=== PATIENT | male | born 1975 | race Caucasian/White ===

== ENCOUNTER → 2021-02-27 01:12 | Outpatient (CLI) | payer OTHER, SELFPAY ==
[2021-02-28 02:27] LABS: SARS-CoV-2 RNA PCR Negative
== END ==
PROVIDERS: PCP Family Medicine; Visit Provider Family Medicine
DX: Z20.822 Contact with and (suspected) exposure to COVID-19 (principal); R05 Cough
CPT/HCPCS: C9803; U0003; U0005

== ENCOUNTER → 2021-05-04 11:07 | Outpatient (CLI) | payer OTHER, SELFPAY ==
--- NOTE | ~2021-05-04 | US_ITS ---
US scrotum doppler DATE: 05/04/2021 12:00 INDICATION: Lump in region of right epididymal head TECHNIQUE: Real-time and color flow imaging and Doppler analysis of the scrotal contents COMPARISON: None FINDINGS: The right testicle measures 3.6 x 1.9 x 3.2 cm, the left 3.8 x 2.1 x 2.5 cm. There is symme tric and homogeneous echotexture of the testicles and normal symmetric color flow signal. There is no evidence of testicular mass lesion or torsion. There is an approximately 5 x 7 mm epididymal head cyst on the left. There is an approximately 3.8 mm right epididymal head cyst. Small right and left hydroceles. No evidence of varicocele on Valsalva maneuver. IMPRESSION: Up to 7 mm left and 3.8 mm right epididymal head cyst No testicular mass lesion or torsion No evidence of varicocele Reviewed, dictated and finalized at [facility]. Reviewed, dictated and finalized at location B.
== END ==
PROVIDERS: PCP Family Medicine; Visit Provider Family Medicine
DX: N50.89 Other specified disorders of the male genital organs (principal)
CPT/HCPCS: 76870; 93976

== ENCOUNTER → 2022-02-16 14:41 | Outpatient (CLI) | payer OTHER, SELFPAY ==
--- NOTE | ~2022-02-16 | XR_ITS ---
XR abdomen/kub 1V 02/16/2022 14:55 Indication: Bilateral kidney stones Procedure: KUB Comparison: 11/30/2016 Findings: Bowel gas pattern is nonobstructive. Moderate colonic fecal loading. There are radiodensiti es lateral to the L4 vertebral body, suspicious for right ureteral stone. The kidneys are obscured by bowel content limiting evaluation for renal stones. Impression: 1: Possible right ureteral stone. Limited evaluation of the kidneys due to overlying bowel content. Reviewed, dictated and finalized at location A. Impression: 1: Possible right ureteral stone. Limited evaluation of the kidneys due to over lying bowel content.
--- NOTE | ~2022-02-16 | CT_ITS ---
EXAMINATION: CT abdomen pelvis wo con DATE: 02/16/2022 15:09 INDICATION: Bilateral kidney stones. Enlarged prostate gland. TECHNIQUE: Computed tomography (CT) of the abdomen and pelvis was performed without intravenous contr ast. The dose-length product was 252.81 mGy-cm. Automated exposure control and iterative reconstructi on technique were employed. COMPARISON: CT dated 05/22/2019. FINDINGS: Lung bases are unremarkable. Heart size normal. No significant pleural or pericardial effus ion. There is a 4.6 mm stone near the expected location of the right UVJ. No significant hydronephros is. This may represent UVJ stone or recently passed stone. The bladder is decompressed. There is a sm all 2 mm nonobstructing left renal stone. Subtle subcentimeter hypodensities of the liver, most likely benign. The spleen, pancreas, adrenal gl ands are unremarkable. Gallbladder is present. Nonobstructive bowel gas pattern. No significant vascu lar abnormality. No lymphadenopathy. IMPRESSION: 1. Stone measuring 4.6 mm present near the right UVJ which may represent a recently passed stone or U VJ stone. No significant hydronephrosis. 2: Punctate nonobstructing left nephrolithiasis. Reviewed, dictated and finalized at location A. IMPRESSION: 1. Stone measuring 4.6 mm present near the right UVJ which may represent a rece ntly passed stone or UVJ stone. No significant hydronephrosis. 2: Punctate nonobstructing left nephrolithiasis.
== END ==
PROVIDERS: PCP Family Medicine; Visit Provider Nurse Practitioner Adult Health
DX: N20.0 Calculus of kidney (principal)
CPT/HCPCS: 74018; 74176

== ENCOUNTER → 2022-03-11 15:10 | Outpatient (CLI) | payer OTHER, SELFPAY ==
--- NOTE | ~2022-03-11 | XR_ITS ---
XR abdomen/kub 1V 03/11/2022 15:35 INDICATION: Right ureteral stone TECHNIQUE: KUB COMPARISON: None FINDINGS: Bowel gas pattern is normal. There is no evidence of free air, mass, organomegaly, ascites or obstruction. No abnormal calculi are seen. The bones appear intact. IMPRESSION: 1: No acute abdominal abnormality identified. Reviewed, dictated and finalized at location B.
--- NOTE | ~2022-03-11 | CT_ITS ---
EXAMINATION: CT abdomen pelvis wo con DATE: 03/11/2022 15:30 INDICATION: Right ureteral stone. TECHNIQUE: Computed tomography (CT) of the abdomen and pelvis was performed without intravenous contr ast. Automated exposure control and iterative reconstruction technique were employed. The dose-length product was 248.62 mGy-cm. COMPARISON: CT abdomen and pelvis 02/16/2022 FINDINGS: The visualized portions of the lung bases demonstrate minimal atelectasis. No pleural effus ion. The heart size is normal. No pericardial effusion. There are cysts in the liver measuring up to 5 mm. The gallbladder is absent. The spleen, pancreas, adrenal glands, and right kidney are normal. T here is a 2 mm stone in left kidney. There is diverticulosis of the colon without evidence of diverti culitis. There are no dilated loops of bowel. There are changes of appendectomy. There are no patholo gically enlarged lymph nodes. There is no free intraperitoneal fluid. There is mild thoracolumbar spo ndylosis. IMPRESSION: 1. 2 mm nonobstructing left kidney stone. Reviewed, dictated and finalized at location A.
== END ==
PROVIDERS: PCP Family Medicine; Visit Provider Nurse Practitioner Adult Health
DX: N20.1 Calculus of ureter (principal); N20.0 Calculus of kidney
CPT/HCPCS: 74018; 74176

== ENCOUNTER 2022-04-09 19:24 | Emergency (ER) | payer OTHER, SELFPAY ==
[2022-04-09] VITALS (10 sets, daily range): BP systolic 121–151; BP diastolic 82–93; PULSE 71–91; RESP 14–20; TEMP 36.7; O2SAT 97–100
--- NOTE | 2022-04-09 19:42 | ED.NAVMDI ---
HPI - Nausea/Vomiting/Diarrhea General Chief complaint: Nausea/Vomiting/Diarrhea Stated complaint: vomiting blood Time Seen by Provider: 04/09/22 19:40 History of Present Illness HPI Narrative: Patient is a 46-year-old male with a history of hypertension presenting with vomiting. Patient states that he went out to dinner with a friend and had several alcoholic beverages. He then went home and was getting ready to go to his daughter's football game when he became suddenly nauseated. He had multiple episodes of emesis. 2 of those episodes were streaked with blood. He called his who advised that he come in for evaluation. Patient states that he had 1 further episode of emesis but he currently feels well. States he is still mildly nauseated. He denies any abdominal pain. Denies similar episodes in the past. He denies headache, fevers or chills, chest pain, shortness of breath, cough, diarrhea, dysuria, leg swelling. Related Data Allergies Allergy/AdvReac Type Severity Reaction Status Date / Time No Known Allergies Allergy Unknown Verified 02/09/22 15:05 Review of Systems Review of Systems: All systems reviewed & are unremarkable except as noted in HPI and below PMFSH Past Medical History Medical History Chronic low back pain Dyslipidemia Essential (primary) hypertension Family history of prostate cancer in father History of kidney stones Surgical History Surgical History History of laparoscopic appendectomy 05/22/2019 History of umbilical hernia repair 04/2019 History of vasectomy 2016 Family History Family History Father Anxiety Cerebrovascular accident Heart disease Chest pain Depression Cancer Mother Alzheimer disease Social History Social History Smoking status: Never smoker Alcohol intake: current Alcohol use details: Occasional/Social Substance use: never Substance use type: does not use Additional living arrangements comments: and two children Additional occupation/education comments: [employer] Gender identity (if verbalized by the patient): Male Sexual Orientation (if Verbalized by the Patient): Straight or Heterosexual Agree to blood products: Yes Exam Narrative: GENERAL: Well-appearing and in no acute distress. Appears slightly intoxicated. HEAD: Normocephalic, atraumatic. EYES: PERRLA and EOMI. ENT: Nares clear, no rhinorrhea or epistaxis. Mucous membranes moist. NECK: Supple. CHEST: Clear to auscultation. No respiratory distress. HEART: Regular rate and rhythm. No murmur heard. Normal peripheral pulses. ABDOMEN: Soft, nontender, nondistended, normal active bowel sounds. EXTREMITIES: Normal range of motion. No edema. SKIN: Warm, dry, no rash. NEURO: No focal deficits. Alert and oriented x3. PSYCH: Normal mood and affect. Course Vital Signs Vital signs: Vital Signs Temperature 98.0 F 04/09/22 19:32 Pulse Rate 83 04/09/22 19:32 Respiratory Rate 18 04/09/22 19:32 Blood Pressure 151/93 H 04/09/22 19:32 Pulse Oximetry 100 04/09/22 19:32 Oxygen Delivery Room Air 04/09/22 19:32 Temperature 98.0 F 04/09/22 19:32 Pulse Rate 74 04/09/22 21:57 Respiratory Rate 18 04/09/22 21:57 Blood Pressure 132/89 04/09/22 21:57 Pulse Oximetry 97 04/09/22 21:57 Oxygen Delivery Room Air 04/09/22 19:32 MDM - Nausea/Vomiting/Diarrhea MDM Narrative Medical decision making narrative: Patient is a 46-year-old male presenting with vomiting and hematemesis. Vitals are within normal limits. Patient is nontoxic and in no acute distress. Exam is remarkable for the above. Patient given fluids, Zofran, Pepcid. Blood work with mild hypokalemia presumably from vomiting. Ethanol level is eleva
[2022-04-09] MEDS: SODIUM CHLORIDE 0.9% IV 1,000 ML 999 ML IV CONT (20:08)
[2022-04-09] MEDS: FAMOTIDINE 20 MG/2 ML VIAL IV PUSH (20:09)
[2022-04-09] MEDS: ONDANSETRON INJ 4 MG/2 ML VIAL IV PUSH (20:09)
[2022-04-09 20:19] LABS: Basophils Percent Auto 0.5 % (0.2-1.2); Eosinophils Absolute Auto 0.2 K/mm3 (0-0.3); Eosinophils Percent Auto 2.2 % (0-4.4); Hematocrit 44.4 % (42.0-52.0); Hemoglobin 15.6 g/dL (14.0-18.0); Immature Granulocyte Absolute 0.05 K/mm3 (0.00-0.031); Immature Granulocyte Percent A 0.6 % (0-0.5); Lymphocytes Absolute Auto 1.84 K/mm3 (0.9-3.2); Lymphocytes Percent Auto 21.2 % (18.3-44.2); Mean Corpuscular HGB Conc 35.1 g/dl (32-36); Mean Corpuscular Hemoglobin 30.4 pg (26-34); Mean Corpuscular Volume 86.4 fl (80-100); Mean Platelet Volume 9.5 fl (7.4-10.4); Monocytes Absolute Auto 0.6 K/mm3 (0.1-0.6); Monocytes Percent Auto 6.7 % (2.6-8.5); Neutrophils Percent Auto 68.8 % (45.5-73.1); Platelet Count Result 314 k/mm3 (150-375); Red Blood Count 5.14 M/mm3 (4.6-6.20); Red Cell Distribution Width 12.8 % (11.5-14.5); White Blood Count 8.7 K/mm3 (4.5-10.0)
[2022-04-09 20:29] LABS: Alanine Aminotransferase 26 U/L (6-50); Alkaline Phosphatase 79 U/L (38-126); Anion Gap 16 mmol/L (8-16); Aspartate Amino Transferase 28 U/L (17-59); Bilirubin,Total 0.4 mg/dL (0.2-1.3); Blood Urea Nitrogen 11 mg/dL (9-20); Calcium 8.9 mg/dL (8.4-10.2); Carbon Dioxide 25 mmol/L (22-30); Chloride 100 mmol/L (98-107); Estimated CRCL calculation 105 ml/min; Estimated Glomerular Filt Rate > 60; Glucose 111 mg/dL (65-110); Potassium 3.2 mmol/L (3.4-5.0); Sodium 141 mmol/L (137-145)
[2022-04-09 21:27] LABS: Ethanol 175 mg/dL (<10)
== END 2022-04-09 21:59 | disposition home or self-care (01) ==
PROVIDERS: Emergency Provider Emergency Medicine; PCP Family Medicine
DX: F10.129 Alcohol abuse with intoxication, unspecified (principal); K92.0 Hematemesis; Y90.6 Blood alcohol level of 120-199 mg/100 ml; E78.5 Hyperlipidemia, unspecified; I10 Essential (primary) hypertension; Z87.442 Personal history of urinary calculi
CPT/HCPCS: 36415; 80053; 80307; 85025; 96361; 96374; 96375; 99284; J2405; J7030

== ENCOUNTER 2022-07-21 08:00 | Outpatient (NON) | payer OTHER, SELFPAY | END 2022-07-21 08:01 | disposition home or self-care (01) | LOC: ANHLAB 07-22 09:15 | PROVIDERS: PCP Family Medicine; Visit Provider Internal Medicine Gastroenterology | DX: R10.11 Right upper quadrant pain (principal) | CPT/HCPCS: 88305 ==

== ENCOUNTER 2022-07-21 11:03 | Day surgery (SDC) | payer OTHER, SELFPAY ==
[2022-04-20 11:30] VITALS: BMI 23.5
[2022-07-08 08:53] VITALS: BMI 23.4
--- NOTE | 2022-07-20 10:27 | WPDANESEPPF ---
Anes - Initial Pre Proc Eval Procedure: Operation Date: 07/21/22 13:00 Proposed Procedures p Esophagogastroduodenoscopy - Darinel Nieto MD s Screening Colonoscopy - Darinel Nieto MD Date/Time: 07/20/22 10:27 Surgeon: Darinel Nieto MD Pre Op Diagnosis: RUQ Pain, family hx.colon polyps, neoplasm screen. Patient Data Age: 46 Gender: M Height: 1.7 m Weight: 68 kg Allergies Allergy/AdvReac Type Severity Reaction Status Date / Time No Known Allergies Allergy Unknown Verified 07/21/22 11:44 Home Medications Medication Instructions Recorded Confirmed Type amlodipine 10 mg tablet 10 mg PO DAILY #90 tabs 06/02/22 07/21/22 Rx hydrochlorothiazide 25 mg tablet 25 mg PO DAILY #90 tabs 06/16/22 07/21/22 Rx Patient hx anesthesia problems: none Family hx anesthesia problems: none Results Review: All pre-operative results and documents have been reviewed as part of the pre-operative evaluation. [facility] Past Medical History Medical History Chronic low back pain Dyslipidemia Essential (primary) hypertension Family history of prostate cancer in father History of kidney stones Surgical History Surgical History History of laparoscopic appendectomy 05/22/2019 History of umbilical hernia repair 04/2019 History of vasectomy 2016 Family History Family History Father Anxiety Cerebrovascular accident Heart disease Chest pain Depression Cancer Mother Alzheimer disease Social History Social History Smoking status: Never smoker Alcohol intake: current Alcohol use details: socially Substance use: never Substance use type: does not use Lack of Transportation: No Lack of Food: Never True Current Housing: I Have Housing Concerned About Future Housing: No Difficulty Paying Gas/Electric Bills: No Difficulty Paying for Meds: No Currently Unemployed: No Education: Master's Degree or Higher Difficulty w/ Childcare or Family Care: No Living arrangements: with family Additional living arrangements comments: and two children Additional occupation/education comments: [employer] Gender identity (if verbalized by the patient): Male Sexual Orientation (if Verbalized by the Patient): Straight or Heterosexual Spiritual care concerns: No Agree to blood products: Yes Anes - Eval Final PreProcedure Day of Procedure 07/20/22 10:27 Patient weight: normal Heart: regular rate and rhythm Lungs: clear to auscultation and normal air movement Airway: Mallampati scale class II Neurological: alert and oriented Last oral intake: >/= 8 hours ASA classification: II Emergent: no Anesthetic plan: proceed Anesthesia type and monitoring: general GIVS and standard monitoring Results Review: All pre-operative results and documents have been reviewed as part of the pre-operative evaluation. Informed Consent: The patient's anesthetic plan and its attendant risks and benefits were discussed with the patient/family/POA. Questions were solicited and answers provided to the satisfaction of the patient/family/POA.
--- NOTE | 2022-07-21 10:38 | PM.HPGS ---
History of Present Illness History of Present Illness Consent: Risks, benefits, and alternatives have been discussed and questions answered. Patient agrees to proceed with procedure. Chief complaint: RUQ Pain, family hx.colon polyps, neoplasm screen. Narrative: Jeramy Sr is a 46 year old male Was referred for investigation of right upper quadrant pain that he has had for several months. He then had an episode of hematemesis including blood clots a couple months ago. There is a family history of colon polyps. He is due for colon cancer screening. Review of Systems Review of Systems: All systems reviewed & are unremarkable except as noted in HPI and below PMFSH Past Medical History Medical History Chronic low back pain Dyslipidemia Essential (primary) hypertension Family history of prostate cancer in father History of kidney stones Surgical History Surgical History History of laparoscopic appendectomy 05/22/2019 History of umbilical hernia repair 04/2019 History of vasectomy 2016 Family History Family History Father Anxiety Cerebrovascular accident Heart disease Chest pain Depression Cancer Mother Alzheimer disease Social History Social History Smoking status: Never smoker Alcohol intake: current Alcohol use details: socially Substance use: never Substance use type: does not use Lack of Transportation: No Lack of Food: Never True Current Housing: I Have Housing Concerned About Future Housing: No Difficulty Paying Gas/Electric Bills: No Difficulty Paying for Meds: No Currently Unemployed: No Education: Master's Degree or Higher Difficulty w/ Childcare or Family Care: No Living arrangements: with family Additional living arrangements comments: and two children Additional occupation/education comments: [employer] Gender identity (if verbalized by the patient): Male Sexual Orientation (if Verbalized by the Patient): Straight or Heterosexual Spiritual care concerns: No Agree to blood products: Yes Meds Home Medications and Allergies Home Medications Medication Instructions Recorded Confirmed Type amlodipine 10 mg tablet 10 mg PO DAILY #90 tabs 06/02/22 07/21/22 Rx hydrochlorothiazide 25 mg tablet 25 mg PO DAILY #90 tabs 06/16/22 07/21/22 Rx Allergies Allergy/AdvReac Type Severity Reaction Status Date / Time No Known Allergies Allergy Unknown Verified 07/21/22 11:44 Exam Const: General: alert Orientation/consciousness: patient oriented x3 Resp: Auscultation: clear to auscultation bilaterally Cardio: Rhythm: regular rhythm GI: GI Palp: Yes Soft to palpation and No Tenderness to palpation present (GI) Neuro: General: patient oriented x3 Assessment and Plan Assessment and plan (1) Hematemesis: Code(s): K92.0 - Hematemesis Status: Acute Assessment and Plan: EGD with possible biopsy or dilatation or cautery. (2) Colon cancer screening: Code(s): Z12.11 - Encounter for screening for malignant neoplasm of colon Status: Acute Assessment and Plan: Colonoscopy with possible biopsy or polypectomy or cautery or injection of substances.
[2022-07-21 11:45] VITALS: BP 142/99; PULSE 90; RESP 16; TEMP 37.1; O2SAT 98; BMI 21.7
[2022-07-21] MEDS: LACTATED RINGERS 1,000 ML 150 ML IV CONT (11:56)
[2022-07-21 13:12] VITALS: BP 110/74; PULSE 77; RESP 16; O2SAT 98
[2022-07-21 13:22] VITALS: BP 112/81; PULSE 76; RESP 16; O2SAT 98
[2022-07-21 13:32] VITALS: BP 116/93; PULSE 75; RESP 16
--- NOTE | 2022-07-21 14:00 | SUR.PHASEII ---
1345; pt awake and alert. denies pain or nausea. eating crackers and drinking water. asking to go home.
--- NOTE | 2022-07-21 14:30 | WPDANESPN ---
Anes - Prog Note Post-Op Date/Time: 07/21/22 14:30 Cardiovascular status: normal Respiratory status: normal Airway patency: baseline Mental status: baseline Post-Op hydration status: normal Vital Signs: Last Vital Signs Temp 37.1 C 07/21/22 11:45 Pulse 75 07/21/22 13:32 Resp 16 07/21/22 13:32 BP 116/93 H 07/21/22 13:32 Pulse Ox 98 07/21/22 13:22 O2 Del Method Room Air 07/21/22 13:32 Pain Score (VAS): 0 I/O: Intake & Output 07/20/22 07/21/22 07/21/22 23:59 07:59 15:59 Intake Total 400 Balance 400 Post-procedural complaints: none Patient Feedback: Patient satisfied with anesthetic care. Other Findings: Patient vital signs back to baseline. Patient denies nausea and vomiting. Patient's pain under control. Patient OK for discharge.
--- NOTE | 2022-07-21 14:32 | WPDANESPN ---
Anes - Prog Note Post-Op Date/Time: 07/21/22 14:32 Cardiovascular status: normal Respiratory status: normal Airway patency: baseline Mental status: baseline Post-Op hydration status: normal Vital Signs: Last Vital Signs Temp 37.1 C 07/21/22 11:45 Pulse 75 07/21/22 13:32 Resp 16 07/21/22 13:32 BP 116/93 H 07/21/22 13:32 Pulse Ox 98 07/21/22 13:22 O2 Del Method Room Air 07/21/22 13:32 Pain Score (VAS): 0 I/O: Intake & Output 07/20/22 07/21/22 07/21/22 23:59 07:59 15:59 Intake Total 400 Balance 400 Post-procedural complaints: none Patient Feedback: Patient satisfied with anesthetic care. Other Findings: Patient vital signs back to baseline. Patient denies nausea and vomiting. Patient's pain under control. Patient OK for discharge.
== END 2022-07-21 14:01 | disposition home or self-care (01) ==
PROVIDERS: PCP Family Medicine; Visit Provider Internal Medicine Gastroenterology
PROC: 0DJ08ZZ Inspection of Upper Intestinal Tract, Via Natural or Artificial Opening Endoscopic (ICD-10-PCS; CPT 43235; principal; 2022-07-21 13:00)
PROC: 0DJD8ZZ Inspection of Lower Intestinal Tract, Via Natural or Artificial Opening Endoscopic (ICD-10-PCS; CPT 45378; 2022-07-21 13:00)
DX: K92.0 Hematemesis (principal)
CPT/HCPCS: 45378; 43239

== ENCOUNTER 2023-11-20 09:38 | Emergency (ER) | payer OTHER, SELFPAY ==
--- NOTE | 2023-11-20 09:42 | ED.GENADULT ---
HPI - General Adult General Chief complaint: Skin/Abscess/Foreign Body Stated complaint: Rash right hand Time Seen by Provider: 11/20/23 09:42 Source: patient Mode of arrival: ambulatory Limitations: no limitations History of Present Illness HPI narrative: 48-year-old male patient presents to [facility] with complaints of a blistery rash to the right middle finger for over week. Patient states he saw the renal dialysis rn on Tuesday was told he had a contact dermatitis was given a prescription for doxycycline as well as a topical ointment for the rash. Patient states that the rash has been getting worse and is very painful feels tingling to the fingertips that are now going to the 2nd and 3rd fingers. Patient states he has been taking 400 mg ibuprofen 3 times a day for the pain. Patient states he did feel that he was getting some bumps and rash to the back of his neck yesterday took some Benadryl and it did go away today. Patient denies any fevers, body aches or chills. Denies chest pain, shortness of breath. Related Data Home Medications Medication Instructions Recorded Confirmed cetirizine 10 mg tablet 10 mg PO DAILY PRN 10/24/23 10/24/23 Allergies Allergy/AdvReac Type Severity Reaction Status Date / Time No Known Allergies Allergy Unknown Verified 10/24/23 13:29 Review of Systems Review of Systems: CONSTITUTIONAL: Denies fever, chills, or sweats. EYES: Denies visual changes, redness, or discharge. ENT: Denies rhinorrhea, congestion, sore throat, or otalgia. CARDIOVASCULAR: Denies chest pain, palpitations, or edema. RESPIRATORY: Denies cough or dyspnea. GASTROINTESTINAL: Denies abdominal pain, nausea, vomiting, or diarrhea. GENITOURINARY: Denies dysuria or hematuria. SKIN: Positive rash to right middle finger x1 week , denies itching. MUSCULOSKELETAL: Denies back pain, joint pain, or myalgia. NEUROLOGIC: Denies headache, numbness, or weakness. PSYCHIATRIC: Denies anxiety or depression. [facility] Past Medical History Medical History Chronic low back pain Dyslipidemia Essential (primary) hypertension Family history of prostate cancer in father Family hx colonic polyps father History of kidney stones Seasonal allergic rhinitis Surgical History Surgical History History of laparoscopic appendectomy 05/22/2019 History of umbilical hernia repair 04/2019 History of vasectomy 2016 Family History Family History Father Anxiety Cerebrovascular accident Heart disease Chest pain Depression Cancer Mother Alzheimer disease Social History Social History Smoking status: Never smoker Alcohol intake: current Alcohol use details: socially Substance use: never Substance use type: does not use Lack of Transportation: No Lack of Food: Never True Current Housing: I Have Housing Concerned About Future Housing: No Difficulty Paying Gas/Electric Bills: No Difficulty Paying for Meds: No Currently Unemployed: No Education: Master's Degree or Higher Difficulty w/ Childcare or Family Care: No Living arrangements: with family Additional living arrangements comments: and two children Occupation/Education: 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 Gender identity (if verbalized by the patient): Male Sexual Orientation (if Verbalized by the Patient): Straight or Heterosexual Spiritual care concerns: No Agree to blood products: Yes Comments At the time of my signature I agree with nursing past medical history, surgical, social, and family history. There is no relevant family history pertinent to the presenting complaint. Exam Narrative: GENERAL: Well-appearing, well-nourished, and in no acute distress. HEAD: N
[2023-11-20 09:45] VITALS: BP 121/80; PULSE 69; RESP 16; TEMP 36.5; O2SAT 99
== END 2023-11-20 10:08 | disposition home or self-care (01) ==
PROVIDERS: Emergency Provider Nurse Practitioner Family; PCP Family Medicine
DX: R21 Rash and other nonspecific skin eruption (principal); E78.5 Hyperlipidemia, unspecified; I10 Essential (primary) hypertension; Z98.52 Vasectomy status
CPT/HCPCS: 99213; G0463

== ENCOUNTER 2023-11-21 15:27 | Emergency (ER) | payer OTHER, SELFPAY ==
--- NOTE | ~2023-11-21 | XR_ITS ---
EXAM: XR finger 3rd RT min 2V DATE: 11/21/2023 16:04 HISTORY: rash/blisters to finger . COMPARISON: None available. FINDINGS: Normal mineralization. No fracture or dislocation. No lytic or blastic lesion. Joint space s are maintained. No erosion or periosteal change. Soft tissues within normal limits. IMPRESSION: No acute osseous finding in the right third digit. Reviewed, dictated and finalized at location K.
[2023-11-21 15:37] VITALS: BP 150/90; PULSE 98; RESP 18; TEMP 36.5; O2SAT 99
--- NOTE | 2023-11-21 16:00 | ED.SKABFB ---
HPI - Skin/Abscess/Foreign Bdy General Chief complaint: Skin/Abscess/Foreign Body Stated complaint: rash Time Seen by Provider: 11/21/23 16:01 Source: patient Mode of arrival: ambulatory Limitations: no limitations History of Present Illness HPI narrative: Patient is a 48-year-old male who presents the ED with report of possible infection to his right 3rd digit. 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 He was then working with [employer], [employer]. he has since developed it blister-like lesions to the finger pad of his right 3rd digit. He has noticed 2 other lesions lateral. He states his finger is intensely painful. He reports burning and shooting pain down his finger. Denies history of similar symptoms. 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 Denies improvement with any these therapies. Has not taken anything for pain. Denies fevers. Denies drainage from the finger. Related Data Home Medications Medication Instructions Recorded Confirmed cetirizine 10 mg tablet 10 mg PO DAILY PRN 10/24/23 10/24/23 Allergies Allergy/AdvReac Type Severity Reaction Status Date / Time No Known Allergies Allergy Unknown Verified 10/24/23 13:29 Review of Systems Review of Systems: CONSTITUTIONAL: Denies fever, chills, or sweats. SKIN: See HPI NEUROLOGIC: Denies headache, dizziness, numbness, or weakness. All systems reviewed & are unremarkable except as noted in HPI and below PMFSH Past Medical History Medical History Chronic low back pain Dyslipidemia Essential (primary) hypertension Family history of prostate cancer in father Family hx colonic polyps father History of kidney stones Seasonal allergic rhinitis Surgical History Surgical History History of laparoscopic appendectomy 05/22/2019 History of umbilical hernia repair 04/2019 History of vasectomy 2016 Family History Family History Father Anxiety Cerebrovascular accident Heart disease Chest pain Depression Cancer Mother Alzheimer disease Social History Social History Smoking status: Never smoker Alcohol intake: current Alcohol use details: socially Substance use: never Substance use type: does not use Lack of Transportation: No Lack of Food: Never True Current Housing: I Have Housing Concerned About Future Housing: No Difficulty Paying Gas/Electric Bills: No Difficulty Paying for Meds: No Currently Unemployed: No Education: Master's Degree or Higher Difficulty w/ Childcare or Family Care: No Living arrangements: with family Additional living arrangements comments: and two children Occupation/Education: occupation Additional occupation/education comments: [employer] Gender identity (if verbalized by the patient): Male Sexual Orientation (if Verbalized by the Patient): Straight or Heterosexual Spiritual care concerns: No Agree to blood products: Yes Exam Narrative: GENERAL: Well appearing, well-nourished, non-toxic, in no acute distress. HEAD: Normocephalic, atraumatic. RESPIRATORY: Airway patent, respirations nonlabored. CARDIOVASCULAR: Regular rate and rhythm. Radial pulses strong. MUSCULOSKELETAL: Moves all extremities. No gross deformities. SKIN: Warm, dry, normal color. Distal finger pad of right 3rd digit /flexor surface with 2 small areas of clear/turbid colored deep pustular formation, minimal surrounding erythema, significant focal tenderness to palpation, lesions extending under distal na
[2023-11-21 16:03] LABS: Basophils Percent Auto 0.1 % (0.2-1.2); Hematocrit 44.8 % (42.0-52.0); Hemoglobin 15.7 g/dL (14.0-18.0); Immature Granulocyte Absolute 0.02 K/mm3 (0.00-0.031); Immature Granulocyte Percent A 0.3 % (0-0.5); Lymphocytes Absolute Auto 0.83 K/mm3 (0.9-3.2); Lymphocytes Percent Auto 11.6 % (18.3-44.2); Mean Corpuscular Hemoglobin 30.1 pg (26-34); Mean Platelet Volume 10.1 fl (7.4-10.4); Monocytes Absolute Auto 0.1 K/mm3 (0.1-0.6); Neutrophils Absolute Auto 6.1 K/mm3 (1.3-6.7); Platelet Count Result 322 k/mm3 (150-375); Red Blood Count 5.21 M/mm3 (4.6-6.20); Red Cell Distribution Width 13.1 % (11.5-14.5); White Blood Count 7.1 K/mm3 (4.5-10.0)
[2023-11-21 16:20] LABS: CRP < 0.5 mg/dL (<1.0)
[2023-11-21 16:55] LABS: Erythrocyte Sedimentation Rate 14 mm/hr (0-20)
== END 2023-11-21 17:01 | disposition home or self-care (01) ==
PROVIDERS: Emergency Provider Physician Assistant; PCP Family Medicine
DX: B00.89 Other herpesviral infection (principal); E78.5 Hyperlipidemia, unspecified; I10 Essential (primary) hypertension; Z87.442 Personal history of urinary calculi
CPT/HCPCS: 36415; 73140; 85025; 85652; 86140; 99283

== ENCOUNTER 2024-12-17 11:55 | Emergency (ER) | payer OTHER, SELFPAY ==
--- NOTE | ~2024-12-17 | XR_ITS ---
HISTORY: PAIN/ SWELLING distal tip 5th finger, INJURY COMPARISON: None TECHNIQUE: 3 views of the left hand were performed. FINDINGS: Acute fracture of the mid shaft of the distal phalanx of the fifth digit with anterior displacement o f the fracture fragment. No additional fractures are appreciated. Gullwing deformity is identified within the proximal interphalangeal joint spaces of the second, thir d, fourth and fifth digits. The remaining joint spaces are otherwise preserved. The carpal arcs are intact. Mild radiocarpal joint space narrowing with sclerosis of the distal radius is present. Bone mineralization is unremarkable. Moderate soft tissue swelling within the fifth digit. No radiopaque foreign body is identified. IMPRESSION: Acute fracture of the distal phalanx of the fifth digit with anterior displacement of the fracture fr agment. Soft tissue swelling. No radiopaque foreign body. Reviewed, dictated and finalized at location A. IMPRESSION: Acute fracture of the distal phalanx of the fifth digit with anterior displacem ent of the fracture fragment. Soft tissue swelling. No radiopaque foreign body.
--- NOTE | 2024-12-17 12:24 | ED_ITS ---
HPI - Extremity Injury (Upper) General Chief Complaint: Extremity Injury, Upper Stated Complaint: INJURED L 5TH FINGER Time Seen by Provider: 12/17/24 12:35 Source: patient, RN notes reviewed and old records reviewed Mode of arrival: ambulatory Limitations: no limitations History of Present Illness HPI narrative: 49 year old male presents to [facility] care with complaints of injury to his left 5th finger when he was using a sledgehammer to demolish an old play set n his yard. In the usage of the sledgehammer he smashed his left 5th distal finger between handle and wooden beam. He reports pain and swelling to his left 5th finger has applied ice to his left injured finger.. MD complaint: injury to: finger (5th finger left hand) Onset (ago): hour(s) (this morning prior to arrival) Handedness: left Place: home Treatments prior to arrival: cold therapy Related Data Home Medications ?Medication ?Instructions ?Recorded ?Confirmed ?Last Taken ?Type cetirizine 10 mg tablet 10 mg PO DAILY PRN 10/24/23 10/24/23 Unknown History Allergies Allergy/AdvReac Type Severity Reaction Status Date / Time No Known Allergies Allergy Unknown Verified 12/18/24 16:05 Review of Systems Review of Systems: CONSTITUTIONAL: Denies fever, chills, or sweats. EYES: Denies visual changes, redness, or discharge. ENT: Denies rhinorrhea, congestion, sore throat, or otalgia. CARDIOVASCULAR: Denies chest pain, palpitations, or edema. RESPIRATORY: Denies cough or dyspnea. GASTROINTESTINAL: Denies abdominal pain, nausea, vomiting, or diarrhea. GENITOURINARY: Denies dysuria or hematuria. SKIN: Denies rash or itching. MUSCULOSKELETAL: Denies back pain,pain to left 5th finger from injury, or myalgia. NEUROLOGIC: Denies headache, numbness, or weakness. PSYCHIATRIC: Denies anxiety or depression. All systems reviewed & are unremarkable except as noted in HPI and below PMFSH Past Medical History Medical History Seasonal allergic rhinitis Family hx colonic polyps father Dyslipidemia Family history of prostate cancer in father Chronic low back pain Essential (primary) hypertension History of kidney stones Surgical History Surgical History History of vasectomy 2016 History of umbilical hernia repair 04/2019 History of laparoscopic appendectomy 05/22/2019 Family History Family History Father Anxiety Cerebrovascular accident Heart disease Chest pain Depression Cancer Mother Alzheimer disease Social History Social History Smoking status: Never smoker Alcohol intake: current Alcohol use details: socially Substance use: never Substance use type: does not use Lack of Transportation: No Lack of Food: Never True Current Housing: I Have Housing Concerned About Future Housing: No Difficulty Paying Gas/Electric Bills: No Difficulty Paying for Meds: No Currently Unemployed: No Education: Master's Degree or Higher Difficulty w/ Childcare or Family Care: No Living arrangements: with family Additional living arrangements comments: and two children Occupation/Education: 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 There is no relevant family history pertinent to the presenting complaint Exam Narrative: GENERAL: Well-appearing, well-nourished, and in no acute distress. HEAD: Normocephalic, atraumatic. EYES: PERRLA and EOMI. ENT: Nares clear, no rhinorrhea or epistaxis. Mucous membranes moist. NECK: Supple.no lymphadenopathy CHEST: Clear to auscultation. No respiratory distress.SAO2 98% on room air HEART: Regular rate and rhythm. No murmur heard. Normal peripheral pulses. ABDOMEN: Soft, nontender, nondistended, normal active bowel sounds. EXTREMITIES: Normal range of motion. No edema.Exception noted to swelling and ecchymosis of left 5th finger, finger warm, strong left radial pulse, sensation is intact unable to move distal aspect of his finger SKIN: Warm, dry, no rash. NEURO: No focal deficits. Alert and oriented x3. Course Course Emergency Course: Patient is aware of diagnosis, understands and agrees to treatment plan.? Anticipatory guidance given.? Patient agrees to follow-up as directed and is aware of reasons to seek care at the emergency department. Portions of this record may have been created with voice recognition software Level of Care: Express Care Visit Vital Signs Vital signs: Vital Signs Temperature 36.6 C 12/17/24 12:28 Pulse Rate 73 12/17/24 12:28 Respiratory Rate 16 12/17/24 12:28 Blood Pressure 141/89 H 12/17/24 12:28 Pulse Oximetry 98 12/17/24 12:28 Temperature 36.6 C 12/17/24 12:28 Pulse Rate 73 12/17/24 12:28 Respiratory Rate 16 12/17/24 12:28 Blood Pressure 141/89 H 12/17/24 12:28 Pulse Oximetry 98 12/17/24 12:28 Reviewed Procedures Orthopedic Splinting/Casting 5th finger: Splinting/Casting Date: 12/17/24 Splinting/Casting Time: 13:23 Side: left Upper Extremity Injury Location: finger Upper Extremity Immobilizer: finger (other) (metal finger splint) Splint: prefabricated Pre-Formed: metal foam finger splint Pre-Procedure Neuro Vascular Exam: normal Post-Procedure Neuro Vascular Exam: normal Additional Comments: finger splint to left 5th finger and secured with Coban MDM - Extremity Injury (Upper) Differential Diagnosis Differential diagnosis: Likely finger sprain and other (fracture of left 5th finger with displacement) Medical Records Attestation: I reviewed the patient's medical records. Imaging Data Attestation: I personally reviewed and interpreted this imaging study as follows: My impression: acute fracture of distal aspect of left 5th finger with anterior displacement of fracture fragment Radiologist's impression: [facility] [address] [place] [id number] XRay Report Signed Patient: Jeramy Sr : 1975 MR#: [id number] Age: 49 Acct:[id number] Loc: [facility] ADM Date: 12/17/24Attending Dr: Ordering Physician: Dalia Duncan APRN Date of Service: 12/17/24 Procedure(s): XR hand LT min 3V Accession Number(s): [id number] cc: Yecenia Silva MD; Dalia Duncan APRN~ HISTORY: PAIN/ SWELLING distal tip 5th finger, INJURY COMPARISON: None TECHNIQUE: 3 views of the left hand were performed. FINDINGS: Acute fracture of the mid shaft of the distal phalanx of the fifth digit with anterior displacement of the fracture fragment. No additional fractures are appreciated. Gullwing deformity is identified within the proximal interphalangeal joint spaces of the second, third, fourth and fifth digits. The remaining joint spaces are otherwise preserved. The carpal arcs are intact. Mild radiocarpal joint space narrowing with sclerosis of the distal radius is present. Bone mineralization is unremarkable. Moderate soft tissue swelling within the fifth digit. No radiopaque foreign body is identified. IMPRESSION: Acute fracture of the distal phalanx of the fifth digit with anterior displac ement of the fracture fragment. Soft tissue swelling. No radiopaque foreign body. Reviewed, dictated and finalized at location A. Please be advised this is a medical document. It is intended for jbtk-or-vuca communication. It is written in medical language and may contain unfamiliar abbreviations or verbiage. Medical documents are intended to carry relevant information, facts as evident, and the clinical opinion of the practitioner at the time of the encounter. This report may have been done utilizing a voice recognition system. Attempts have been made to correct errors. However, there may be uncorrected grammatical, spelling, and recognition errors present. The file time of this note does not necessarily represent the time of service. Dictated By: Radha Phillips MD 12/17/24 1237 Signed By: <Electronically signed by Radha Phillips MD in OV> Critical Care Time Critical Care Time Critical Care Time: No Discharge Plan Discharge Clinical Impression: Fracture of distal phalanx of finger of left hand, Displaced fracture Patient Disposition: Home Condition: Stable Instructions: Antibiotic Form, Finger Fracture (ED) Additional Instructions: orthopedic splint as directed for comfort for the next 5-7 days Tylenol for lesser pain Ibuprofen regularly for the next 2-3 days for the inflammation Follow-up with hand surgeon call for appointment Dr Leong [phone] located in physician offices at [facility] [address] Follow-up with PCP if further problems or concerns Ice to the area 20-30 minutes 4-6 times a day Elevate above heart If your symptoms persist, change or worsen significantly before you can contact your personal physician then please, without delay, go to the emergency department for further evaluation. Follow-up with PCP in 7-10 days or sooner if needed Follow up with PCP soon in regards to your blood pressure which is elevated above threshold for referral. Blood pressure above 120/80 may indicate pre- hypertension.141/89 Patient Language: Wallisian Prescriptions: No Action prednisone 20 mg tablet 40 mg PO DAILY 5 Days Qty: 10 0RF cetirizine 10 mg tablet 10 mg PO DAILY PRN sulfamethoxazole-trimethoprim [Bactrim DS] 800-160 mg tablet 1 tablet PO Q12H 7 Days Qty: 14 0RF acyclovir 5 % ointment 1 applic topical 6XD 7 Days Qty: 15 0RF Rx Instructions: apply every 3 hours for at least 7 days. hydrochlorothiazide 25 mg tablet 25 mg PO DAILY Qty: 30 0RF Rx Instructions: LAST REFILL UNTIL SEEN amlodipine 10 mg tablet 10 mg PO DAILY Qty: 30 0RF Rx Instructions: NEEDS APPOINTMENT FOR FURTHER REFILLS metoprolol succinate 25 mg tablet extended release 24 hr 25 mg PO DAILY Qty: 30 0RF Rx Instructions: NEEDS APPOINTMENT,LAST REFILL UNTIL SEEN Follow-up/Referrals: Radames Leong MD [Physician] - (acute fracture distal phalanx of the fifth digit with anterior displacement of the fracture fragment) Kierra Silva MD [Primary Care Provider] - Time of Disposition: 13:24 Quality [place] Coma Scale Eyes: Open Verbal: Oriented and Alert Motor: Follows Commands [place] Coma Total Score: 15
[2024-12-17 12:28] VITALS: BP 141/89; PULSE 73; RESP 16; TEMP 36.6; O2SAT 98
== END 2024-12-17 13:20 | disposition home or self-care (01) ==
PROVIDERS: Emergency Provider Registered Nurse; PCP Family Medicine
DX: S62.637A Displaced fracture of distal phalanx of left little finger, initial encounter for closed fracture (principal); W27.8XXA Contact with other nonpowered hand tool, initial encounter; I10 Essential (primary) hypertension; E78.5 Hyperlipidemia, unspecified; Z98.52 Vasectomy status
CPT/HCPCS: 29130; 73130; 99214; G0463

== ENCOUNTER 2024-12-19 15:25 | Outpatient (CLI) | payer OTHER, SELFPAY ==
--- OUTSIDE RECORDS SUMMARY | 2024-12-19 15:29 | XMS_ITS | Continuity of Care Document ---
Author Organization [facility] Address [address] [place] [address] Phone Care Team Providers Care Cork Insulator Helper Name Role Phone Linda Aguero MD Unavailable Unavailabl e Allergies, Adverse Reactions, Alerts Substance Reaction Status Criticality No Known Allergies Active No Inform ation Medications Medication Instructions Dosage Effective Dates (start - stop) Status Comments No Drug Therapy Prescribed Procedures Procedure Date RADEX ELBW COMPL MINIMUM 3 VIEWS 2015 OFFICE/OUTPATIENT VISIT NEW Advance Directives Directive Yes / No Effective Date File Name No Information Encounters Encounter Description Practice Location Reason(s) For Visit Diagnoses Date Provider Providers Copied on Encounter OFFICE/OUTPAT IENT VISIT NEW [facility] , [address] [facility] [address] [facility] [address], [place], [address], tel:[phone] [facility] Pain in right elbowMedial epicondylitis , right elbow [phone] [address] [facility] [address] [place], [place], [id number] . tel:[phone] Referring Provider: Gisella Barnett, [address] [address] [facility], [address], [place], [address]. tel:[phone] Family History Family Member Type Diagnosis Age At Onset Father Problem (finding) Cardiovascular disease Father Problem (finding) Cancer, unknown Mother Problem (finding) Cardiovascular disease Mother Problem (finding) dementia Payers Payer name Insurance type Covered alliance party ID Authoriza tion(s) [facility] Choice/Choice Plus E2 [id number] Social History Type Description Quantity Date Captured Comments Alcohol Use Details beer Caffeine Use Details Unknown Tobacco Use Status Never smoked tobacco 2015 Smoking Status Never smoker Non-Smoking Tobacco Use Details : No Details Available : No Details Available Sex Male Vital Signs Date / Time: Height Weight BMI Pulse Rate Blood Pressure Temperature Respiratory Rate Body Surface Area Head Circumference Head Circ. Percentile Wt./Feliberto. Percentile BMI percentile Pulse Ox Inhaled Ox 8:15 AM 67.00 in 68.039 kg (150.00 lbs) 23.4 9 kg/m eter (2) 128/76 mm[Hg] Chief Complaint And Reason For Visit No Information Reason For Referral Reason For Referral No Information Plan Of Treatment Date Type Action Status Referral Ordered: RADEX ELBW COMPL MINIMUM 3 VIEWS RT ordered History Of Present Illness Encounter Date Complaint History Of Prese nt Illness No Information Functional Status Date Functional Assessmen t No Information Medications Administered Medication Instructions Dosage Effective Dates (start - stop) Status Comments No Drug Therapy Prescribed Instructions Date Instruction Additional Infor shawn Home exercise program. Related t o Medial epicondylitis, right elbow Assessments Type Assessment Date assessment Pain in right elbow assessment Medial epicondylitis, right elbo w Patient Care Teams Name Effective Dates (start - stop) Status Members No Information
[2024-12-19 15:55] LABS: Anion Gap 10 mmol/L (4-12); Blood Urea Nitrogen 13 mg/dL (9-20); Calcium 9.2 mg/dL (8.4-10.2); Carbon Dioxide 25 mmol/L (22-30); Chloride 103 mmol/L (98-107); Estimated Glomerular Filt Rate > 60; Glucose 90 mg/dL (65-110); Potassium 3.4 mmol/L (3.4-5.0); Sodium 138 mmol/L (137-145)
== END 2024-12-19 15:26 | disposition home or self-care (01) ==
LOC: ANHLAB 15:27
PROVIDERS: PCP Family Medicine; Visit Provider Anesthesiology
DX: I10 Essential (primary) hypertension (principal)
CPT/HCPCS: 36415; 80048

== ENCOUNTER 2024-12-20 09:03 | Day surgery (SDC) | payer OTHER, SELFPAY ==
--- NOTE | ~2024-12-20 | XR_ITS ---
INTRAOPERATIVE FLUOROSCOPY: CLINICAL HISTORY: 49 years old Male; CL REDUCTION PERCUTANEOUS PIN LEFT SMALL FINGER DISTAL PHALANX PROCEDURE COMMENTS: Limited intraoperative fluoroscopy of the left finger was performed. CUMULATIVE DOSE: 0.7 mGy FLUOROSCOPY TIME: 13 seconds FINDINGS/IMPRESSION: Please refer to operative note for further details. Reviewed, dictated and finalized at location A.
--- NOTE | 2024-12-20 06:56 | WPDHPUPDATE1 ---
History and Physical Update Update Date/Time: 12/20/24 06:56 Patient seen and examined in pre-operative holding area. No interval change in medical history or symptoms. Patient recalls previous discussion of benefits and alternatives to procedure. Continues to desire to proceed with closed reduction and pin fixation left small finger distal phalanx fracture . Reviewed procedure, post-op expectations and risks including but not limited to bleeding, infection, injury to tendon/nerve/vessel, decreased hand function, stiffness, RSD, no change or worsening of symptoms, malunion, nonunion, arthritis. I discussed the possible use of assistants and their participation in the case. Patient stated understanding and signed the consent form wishing to proceed.
--- NOTE | 2024-12-20 06:57 | W.PM.PROC2 ---
Procedure Note - Detailed Date of Procedure 12/20/24 Pre-op Diagnosis Left Small Finger Distal Phalanx Fracture Post-op Diagnosis Same Procedure Performed crpp left small finger distal phalanx fx Surgeon Radames Leong MD [employer] yandel mckinney pa-c Anesthesia MAC Description of Procedure INFORMED CONSENT: The patient was seen and examined and marked in the pre-op area.? The patient signed the consent form. PROCEDURE IN DETAIL:The patient taken back to OR on the stretcher in supine position. Time out performed with anesthesia, surgeon and staff agreeing on patient's name site and surgery to be performed SCDs were placed on the lower extremities and inflated. A tourniquet was placed on {left} upper extremity and antibiotics given IV After anesthesia administered sedation I injected {5}cc 1%lido and 0.5% marcaine plain for digital block in the palm The?{left upper extremity}?was prepped and draped in sterile fashion the??{left upper extremity} was? exsanguinated with Esmarch bandage and tourniquet inflated to 250mmHg The mini C-arm was draped and brought into the field. The fracture was evaluated in multiple views of fluoroscopy and unstable reduction was achievable. I proceeded with placing a 0.045 K-wire in retrograde fashion across the fracture and across the PIP joint. K-wire placement was verified on multiple views of fluoroscopy noting adequate reduction of the fragments. The pin was trimmed below the skin. A dressing of xeroform, 4x4, marco, and an ulnar gutter splint was applied for patient safety, security, and comfort and secured with an gibson bandage after the tourniquet was let down noting the hand was warm and well perfused. The patient was then awaken from anesthesia and transferred to the recovery room in stable condition.? Complications - none EBL- 0cc Disposition - home in stable conditions Yandel Mckinney PA-C was essential for positioning, retraction, closure and dressing placement [facility] Billing Surgery - Charge Forward: Surgery Billing ([id number] same for yandel adding )
--- OUTSIDE RECORDS SUMMARY | 2024-12-20 09:48 | XMS_ITS | Continuity of Care Document ---
Author Organization [facility] Address [address] [place] [address] Phone Care Team Providers Care Prisoner Classification Interviewer Name Role Phone Linda Aguero MD Unavailable [...] OFFICE/OUTPAT IENT VISIT NEW [facility] , [address] [facility] [address] [facility] [address], [place], [address], tel:[phone] [facility] Pain in right elbowMedial epicondylitis , right elbow [phone] [address] [facility] [address] [place], [place], [id number] . tel:[phone] Referring Provider: Gisella Barnett, [address] [facility], [address], [place], [address]. tel:[phone] Family History Family Member Type Diagnosis Age At Onset Father Problem (finding) Cardiovascular disease Father Problem (finding) Cancer, unknown Mother Problem (finding) Cardiovascular disease Mother Problem (finding) dementia Payers Payer name Insurance type Covered republican ID Authoriza tion(s) [facility] Choice/Choice Plus E2 OT [id number] Social History Type Description Quantity Date Captured [...]
--- OUTSIDE RECORDS SUMMARY | 2024-12-20 09:48 | XMS_ITS | Data Portability ---
[facility] Organization [facility] Address [address] [place] [address] Assessment No assessment recorded. Plan of Treatment Reminders Order Date Submit Date Provider Last Modified By Organization Details Last Modified Time Details Appointments None recorded. Lab rapid strep group A, throat 2024 025 In-Office Order, Internal Use Only DO Not Attach Compendium DO Not Attach Compendium, Do Not Delete/merge, [id number] 10:15:49 rapid strep group A, throat 2023 024 LEYLA In-Office Order, Internal Use Only DO Not Attach Compendium DO Not Attach Compendium, Do Not Delete/merge, [id number] 14:34:49 Referral None recorded. Procedures None recorded. Surgeries None recorded. Imaging None recorded. Medication Orders Flonase Allergy Relief 50 mcg/actuati on nasal spray,suspe nsion 2024 025 [facility][id number], [address], [place], [place], [id number], 5 10:28:45 cetirizine 10 mg tablet 2024 025 [facility] #[id number], [address], [place], [place], [id number], 5 10:28:49 fluticasone propionate 50 mcg/actuati on nasal spray,suspe nsion 2023 024 [facility] #[id number], [address], [place], [place], [id number], 5 10:16:07 cetirizine 10 mg tablet 2023 024 [facility] #[id number], [address], [place], [place], [id number], 5 10:16:04 amoxicillin 875 mg-potassiu m clavulanate 125 mg tablet 2023 024 LEYLA [facility] #[id number], [address], [place], [place], [id number], 4 11:01:27 Patient TargetsNo targets recorded. Patient Instructions Encounter Date Encounter Id Patient Instructions Last Modified By Organization Details Last Modified Time 08/24/2023 [id number] middle ear fluid : care instructions Not available 08/29/2023 13:44:46 ear infection (otitis media): care instructions Not available 08/29/2023 13:44:46 learning about high blood pressure Not available 08/29/2023 13:45:48 high blood pressure: care instructions Not available 08/29/2023 13:45:48 dash diet: care instructions Not available 08/29/2023 13:45:48 11/28/2024 [id number] A healthy lifestyle: care instructions Not available 11/28/2024 10:30:27 Reason for Referral None Reported. Results Created Date Observation Date Name Description Value Unit Range Abnormal Flag Note LastModifiedBy Organization Detail LastModifiedTime 08/24/19 24 08/24/2023 rapid strep group A, throa t Strep negati ve Not Available In-Office Order Internal Use Only DO Not Attach Compendium DO Not Attach Compendium, Do Not Delete/merge, [id number] 08/24/2023 10:48:01 11/29/19 25 11/28/2024 rapid strep group A, throa t Strep negati ve Not Available In-Office Order Internal Use Only DO Not Attach Compendium DO Not Attach Compendium, Do Not Delete/merge, [id number] 11/28/2024 10:05:00 Result Notes None recorded. Problems No Known Problems Medical Equipment None Reported. Allergies No known drug allergies Medications Name Sig Start Date Stop Date Status Note LastModified by Organization Details LastModified Time cetirizine 10 mg tablet Take 1 tablet every day by oral route as directed for 30 days. 2024 active Not Available Not Available Not Avai lable amlodipine 10 mg tablet TAKE 1 TABLET BY MOUTH DAILY active Not Available Not Available No t Available hydrochlorothi azide 25 mg tablet TAKE 1 TABLET BY MOUTH DAILY active Not Available Not Available No t Available metoprolol succinate ER 25 mg tablet,extende d release 24 hr TAKE 1 TABLET BY MOUTH DAILY active Not Available Not Available No t Available fluticasone propionate 50 mcg/actuation nasal spray,suspensi on SHAKE LIQUID AND USE 1 SPRAY IN EACH NOSTRIL EVERY DAY active Not Available Not Available No t Available amoxicillin 875 mg-potassium clavulanate 125 mg tablet TAKE 1 TABLET BY MOUTH EVERY 12 HOURS WITH MEALS FOR 7 DAYS active Not Available Not Available No t Available hydrochlorothi azide active Not Available Not Available Not Available Vitals Date Recorded Body height Body mass index (BMI) Body weight Oxygen saturation Oxygen saturation in Arterial blood by Pulse oximetry Heart rate Respiratory rate Body temperature Systolic blood pressure Diastolic blood pressure Provider Name and Address Organization Details Last Updated DateTime 4 170.18 cm 23.8 kg/m2 72595.0 4 g 98 % 98 % 87 /min 18 /min 97.5 [degF] 154 mm[Hg] 104 mm[Hg] SOFIA [place] - [facility] 4 10:43:00 Date Recorded Body height Body mass index (BMI) Body weight Oxygen saturation Oxygen saturation in Arterial blood by Pulse oximetry Heart rate Body temperature Respiratory rate Provider Name and Address Organization Details Last Updated DateTime 5 170.18 cm 25.2 kg/m2 45374.3 7 g 100 % 100 % 86 /min 98.9 [degF] 17 /min Suha Bond [place] - [facility] 5 10:04:28 Social History Question Answer Notes LastModified by Organizat ion Details LastModified Time Tobacco Smoking Status Never Smoker SOFIA [place], [place] - [facility] 08/24/2023 10:43:45 What Was The Date Of Your Most Recent Tobacco Screening? 11/28/2024 [email or web address] Information not available 11/28/2024 Has Tobacco Cessation Counseling Been Provided? No Information not available 08/24/2023 Sex: Unknown Functional Status Question Answer Note LastModified by Organizat ion Details LastModified Time Do you use any illicit or recreational drugs? No Information not available 08/24/2023 Do you or have you ever used any other forms of tobacco or nicotine? No Information not available 08/24/2023 What is your level of alcohol consumption? None Information not available 08/24/2023 Mental Status None recorded. Family History Relationship Description Onset Age of this Age Resolved Age Notes LastModified by Organization Details LastModified Time Father No current problems or disability [email or web address] Not available 08/24 10:43:38 Mother No current problems or disability [email or web address] Not available 08/24 10:43:38 Medical History Condition Response Coronary Artery Disease N Other N Atrial Fibrillation N High Blood Pressure N Thyroid Problems N Kidney or Bladder Problems N GI Problems N Depression N COPD N Blood Clots N Skin Problems N Eating Disorder N Anemia N Heart Attack ([place]) N Anxiety Disorder N Diabetes N Muscle, Joint, or Bone Problems N Arthritis N Seizures/Epilepsy N Acid Reflux (GERD) N Cancer N Stroke N Asthma N Allergies N ADHD N Substance Abuse N High Cholesterol N Hepatitis N Liver Disease N Schizophrenia N Headaches N Heart Failure N Osteoporosis N Immunizations Vaccine Type Date Status Note Provider Nam e and Address Organization Details Recorded Time Influenza, split virus, trivalent, preservative 4 completed Not Available [facility] 11/28/2024 10:00:40 Influenza, split virus, quadrivalent, PF 0 completed Not Available [facility] 11/28/2024 10:00:40 COVID-19, mRNA, LNP-S, PF, 30 mcg/0.3 mL dose 1 completed Not Available [facility] 11/28/2024 10:00:40 COVID-19, mRNA, LNP-S, PF, 30 mcg/0.3 mL dose 1 completed Not Available [facility] 11/28/2024 10:00:40 Influenza, recombinant, quadrivalent, PF 2 completed Not Available [facility] 11/28/2024 10:00:40 Past Encounters Encounter ID Performer Location Encounter Start Date Encounter Closed Date Diagnosis/Indication Diagnosis SNOMED-CT Code Diagnosis ICD10 Code Diagnosis Note [id number] EFREN Daily NP [facility] [address] [place] [address] 08/24/2023 10:33:07 08/24/2023 10:39:56 Sore throat 906496421 J02.9 -Increase fluid intake-Can use tylenol or ibuprofen for fever or pain-To alert clinic if any new or wosening symptoms. Acute otitis media 82447 03 H66.90 -Ear recheck in 2 weeks-Incr ease fluid intake-Can use tylenol or ibuprofen for fever or pain-To alert clinic if any new or wosening symptoms. Middle ear effusion 1004 026347 H74.8X9 -To use as directed. Essential hypertension 75740101 I10 -Not well controlled .-Will f/u with PCP for BP management . Denies any symptoms. [id number] Danny May MD [facility] [facility] [employer] [facility] [address] [place] [id number] 11/28/2024 09:58:52 11/28/2024 12:31:24 Acute pharyngitis 963699356 J02.8 -Pt declined BP reading-In crease fluid intake-Can use tylenol or ibuprofen for fever or pain-To alert clinic if any new or wosening symptoms. Overweight in adulthood with body mass index of 25 or more but less than 30 798060898 E66.3 Z68.25 Overweight 686624628 E66 .3 Health Concerns Section Related Observation LastModified by Organization Detai ls LastModified Time None Recorded Concern Status LastModified by Organization Details LastModified Time None Recorded Advance Directives Directive None Recorded Payers Encounter Date Sequence Insurance Name Policy Number Policy Pierson Covered Member ID Pierson Member ID Guarantor Name 08/24/2023 1 [facility] [id number] Jeramy Sr [id number] Jeramy Sr 11/28/2024 1 [facility] [id number] Jeramy Mccollum Remberto [id number] Jeramy Mccollum Remberto Notes Date Note Type Note Provider Name and Address Organization Details Recorded Time 08/24/2023 text/html Ear Pain/InfectionRepo rted bypatient.Location :earache left;ear fullness left Quality:worsening pain;aching pain Pt into school based clinic for ear pain. Pt reports ear pain started 3 days ago. Feels pain and congestion in both ears. Also has had sore throat. No fever. No cough. EFREN Daily NP Attn: [facility],[address] [place], [address], [facility] 08/29/2023 13:46:25 11/28/2024 text/html Throat PainReported bypatient.Location :bilateral Quality:sore Severity:mild Onset/Timing:abrup t Associated Symptoms:no stress; no coughing with sputum; no choking; no throat tickle/itch; no globus sensation; no odynophagia; no dysphagia; no burping; no hoarseness; no neck/shoulder muscle tension; no weight loss; no loss of appetite; no fever; no lump in neck; no dyspnea; no daytime somnolence; no ear pain; no ear infection; no nasal congestion; no postnasal drip; no oral mucosal lesion; no hemoptysis Pt into school based clinic with sore throat that started two days ago. No fever. No body aches. No chills. No N/V/D. No rash. Pt denies cough. EFREN Daily NP Attn: [facility],[address] [place], [address], [facility] 12/04/2024 11:16:52
[2024-12-20 10:00] VITALS: BP 130/86; PULSE 73; RESP 16; TEMP 37.1; O2SAT 99
[2024-12-20] MEDS: LACTATED RINGERS 1,000 ML 30 ML IV CONT (10:22)
--- NOTE | 2024-12-20 10:31 | WPDANESEPPF ---
Anes - Initial Pre Proc Eval Procedure: Operation Date: 12/20/24 11:15 Proposed Procedures p Closed Reduction Percutaneous Pinning Left Small Finger Distal Phalanx - Radames Leong MD Date/Time: 12/20/24 10:31 Surgeon: Radames Leong MD Pre Op Diagnosis: Left Small Finger Distal Phalanx Fracture Patient Data Age: 49 Gender: M Height: 1.7 m Weight: 70.307 kg Allergies Allergy/AdvReac Type Severity Reaction Status Date / Time No Known Allergies Allergy Unknown Verified 12/19/24 14:33 Home Medications ?Medication ?Instructions ?Recorded ?Confirmed ?Type hydrochlorothiazide 25 mg tablet 25 mg PO DAILY #30 tabs 11/16/24 12/19/24 Rx amlodipine 10 mg tablet 10 mg PO DAILY #30 tabs 12/12/24 12/19/24 Rx metoprolol succinate 25 mg 25 mg PO DAILY #30 tabs 12/12/24 12/19/24 Rx tablet,extended release 24 hr cephalexin 500 mg capsule 500 mg PO Q8H #21 caps 12/20/24 Rx hydrocodone 5 mg-acetaminophen 325 1 tablet PO Q6H PRN pain #12 tabs 12/20/24 Rx mg tablet Patient hx anesthesia problems: none Family hx anesthesia problems: none Results Review: All pre-operative results and documents have been reviewed as part of the pre-operative evaluation. [facility] Past Medical History Medical History Seasonal allergic rhinitis Family hx colonic polyps father Dyslipidemia Family history of prostate cancer in father Chronic low back pain Essential (primary) hypertension History of kidney stones Surgical History Surgical History History of vasectomy 2016 History of umbilical hernia repair 04/2019 History of laparoscopic appendectomy 05/22/2019 Family History Family History Father Anxiety Cerebrovascular accident Heart disease Chest pain Depression Cancer Mother Alzheimer disease Social History Social History Smoking status: Never smoker Alcohol intake: current Drinks per week: 1 Alcohol use details: socially Substance use: never Substance use type: does not use Lack of Transportation: No Lack of Food: Never True Current Housing: I Have Housing Concerned About Future Housing: No Difficulty Paying Gas/Electric Bills: No Difficulty Paying for Meds: No Currently Unemployed: No Education: Master's Degree or Higher Difficulty w/ Childcare or Family Care: No Living arrangements: with family Additional living arrangements comments: and two children Occupation/Education: 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 Gender identity (if verbalized by the patient): Male Sexual Orientation (if Verbalized by the Patient): Straight or Heterosexual Spiritual care concerns: No Agree to blood products: Yes Anes - Eval Final PreProcedure Day of Procedure 12/20/24 10:31 Patient weight: normal Heart: regular rate and rhythm Lungs: clear to auscultation and normal air movement Airway: Mallampati scale class II Neurological: alert and oriented Last oral intake: >/= 8 hours ASA classification: II Emergent: no Anesthetic plan: proceed Anesthesia type and monitoring: general GIVS and standard monitoring Results Review: All pre-operative results and documents have been reviewed as part of the pre-operative evaluation. Informed Consent: The patient's anesthetic plan and its attendant risks and benefits were discussed with the patient/family/POA. Questions were solicited and answers provided to the satisfaction of the patient/family/POA.
[2024-12-20] MEDS: ceFAZolin SODIUM 2 GM/20 ML SW SYRINGE IV PUSH (11:16)
[2024-12-20] MEDS: BUPivacaine HCL 0.5% PF 30 ML VIAL 3.5 ML INFILTRATE (11:26)
[2024-12-20] MEDS: LIDOCAINE 1% LOCAL INJ 20 ML VIAL 3.5 ML INFILTRATE (11:27)
[2024-12-20 11:40] VITALS: BP 110/73; PULSE 73; RESP 16; O2SAT 97
--- NOTE | 2024-12-20 11:44 | WPDANESPN ---
Anes - Prog Note Post-Op Date/Time: 12/20/24 11:44 Cardiovascular status: normal Respiratory status: normal Airway patency: baseline Mental status: baseline Post-Op hydration status: normal Vital Signs: Last Vital Signs Temp 37.1 C 12/20/24 10:00 Pulse 73 12/20/24 10:00 Resp 16 12/20/24 10:00 BP 130/86 12/20/24 10:00 Pulse Ox 99 12/20/24 10:00 O2 Del Method Room Air 12/20/24 10:00 Pain Score (VAS): 0 Post-procedural complaints: none Patient Feedback: Patient satisfied with anesthetic care. Other Findings: Patient vital signs back to baseline. Patient denies nausea and vomiting. Patient's pain under control. Patient OK for discharge.
[2024-12-20 11:50] VITALS: BP 105/72; PULSE 70; RESP 16; O2SAT 98
[2024-12-20 12:00] VITALS: BP 112/77; PULSE 65; RESP 16; O2SAT 96
== END 2024-12-20 12:08 | disposition home or self-care (01) ==
PROVIDERS: PCP Family Medicine; Visit Provider Plastic Surgery
PROC: (CPT 26756; principal; 2024-12-20 11:15)
DX: S62.637A Displaced fracture of distal phalanx of left little finger, initial encounter for closed fracture (principal); W23.0XXA Caught, crushed, jammed, or pinched between moving objects, initial encounter
CPT/HCPCS: 26756; 99199

== ENCOUNTER 2025-01-02 08:16 | Outpatient (CLI) | payer OTHER, SELFPAY ==
--- NOTE | ~2025-01-02 | XR_ITS ---
XR finger 5th LT min 2V Ordering provider: Brooke Rivas PA-C History: . Displaced fracture of 5th distal phalanx of left hand . Comparison: December 17, 2024 FINDINGS: BONES: Fracture in the midshaft of the distal phalanx of the little finger. Postoperative changes are seen. JOINT SPACES: Narrowing of the distal interphalangeal joint. SOFT TISSUES: Normal. IMPRESSION: Fracture of the distal phalanx of the left little finger with postoperative changes. Reviewed, dictated and finalized at location A. IMPRESSION: Fracture of the distal phalanx of the left little finger with postoperative amanda nges.
--- OUTSIDE RECORDS SUMMARY | 2025-01-02 08:30 | XMS_ITS | Continuity of Care Document ---
Author Organization [facility] Address [address] [place] [address] Phone Care Team Providers Care Batch Room Technician Name Role Phone Linda Aguero MD Unavailable [...] OFFICE/OUTPAT IENT VISIT NEW [facility] , [address] [facility] [address] [facility] [address], [place], [address], tel:[phone] [facility] Pain in right elbowMedial epicondylitis , right elbow [address] [address] [facility] [address] [place], [place], [id number] . tel:[phone] Referring Provider: Gisella Barnett, [address], [address], [place], [address]. tel:[phone] Family History Family Member Type Diagnosis Age At Onset Father Problem (finding) Cardiovascular disease Father Problem (finding) Cancer, unknown Mother Problem (finding) Cardiovascular disease Mother Problem (finding) dementia Payers Payer name Insurance type Covered democrat ID Authoriza tion(s) [facility] Choice/Choice Plus [id number] [id number] Social History Type Description Quantity Date Captured [...]
== END 2025-01-02 08:17 | disposition home or self-care (01) ==
PROVIDERS: PCP Family Medicine; Visit Provider Physician Assistant Surgical
DX: S62.637A Displaced fracture of distal phalanx of left little finger, initial encounter for closed fracture (principal); X58.XXXA Exposure to other specified factors, initial encounter
CPT/HCPCS: 73140

== ENCOUNTER 2025-01-16 09:51 | Outpatient (CLI) | payer OTHER, SELFPAY ==
--- NOTE | ~2025-01-16 | XR_ITS ---
XR finger 5th LT min 2V Ordering provider: Brooke Rivas PA-C History: . S62.637A - Displaced fracture of distal phalanx of left l... . Comparison: January 02, 2025 FINDINGS: BONES: Fracture in the mid shaft of the distal phalanx of the left fifth finger. Status post removal of the pin. No change in alignment. JOINT SPACES: Narrowing of the distal interphalangeal joint. SOFT TISSUES: Normal. IMPRESSION: Fracture in the distal phalanx with no change in alignment. Reviewed, dictated and finalized at location A.
== END 2025-01-16 09:52 | disposition home or self-care (01) ==
PROVIDERS: PCP Family Medicine; Visit Provider Physician Assistant Surgical
DX: S62.637A Displaced fracture of distal phalanx of left little finger, initial encounter for closed fracture (principal); X58.XXXA Exposure to other specified factors, initial encounter
CPT/HCPCS: 73140